=== PATIENT | female | born 1960 | race Caucasian/White ===

== ENCOUNTER → 2016-07-26 | Outpatient (CLI) | payer OTHER ==
[~2016-07-26] MED LIST: ESCI20TA PO; PRAM0.25 PO; SIMV10TA3 PO
== END | disposition home or self-care (01) ==
LOC: RAD 15:44
PROVIDERS: ATTEND Orthopaedic Surgery
DX: S83.232A Complex tear of medial meniscus, current injury, left knee, initial encounter (principal); S83.231A Complex tear of medial meniscus, current injury, right knee, initial encounter; S86.811A Strain of other muscle(s) and tendon(s) at lower leg level, right leg, initial encounter; S86.812A Strain of other muscle(s) and tendon(s) at lower leg level, left leg, initial encounter; M17.0 Bilateral primary osteoarthritis of knee; M71.22 Synovial cyst of popliteal space [Baker], left knee; M71.21 Synovial cyst of popliteal space [Baker], right knee; M25.462 Effusion, left knee; M25.461 Effusion, right knee; X58.XXXA Exposure to other specified factors, initial encounter; Y93.89 Activity, other specified; Y92.89 Other specified places as the place of occurrence of the external cause; Y99.8 Other external cause status

== ENCOUNTER → 2016-08-06 | Outpatient (CLI) | payer OTHER ==
[2016-08-06 10:49] LABS: ASPARTATE AMINO TRANSFERASE 12 U/L (15-37); BLOOD UREA NITROGEN 13 mg/dL (7-18)
== END | disposition home or self-care (01) ==
LOC: LAB 10:15
PROVIDERS: ATTEND Family Medicine
DX: R53.83 Other fatigue (principal)
CPT/HCPCS: 36415; 80053; 82607; 82746; 84439; 84443; 84480; 85025

== ENCOUNTER → 2017-03-13 | Outpatient (CLI) | payer OTHER | END | disposition home or self-care (01) | LOC: RAD 15:50 | PROVIDERS: ATTEND Family Medicine | DX: M25.551 Pain in right hip (principal); M25.552 Pain in left hip; R10.2 Pelvic and perineal pain | CPT/HCPCS: 73523 ==

== ENCOUNTER → 2017-03-15 | Outpatient (CLI) | payer OTHER | END | disposition home or self-care (01) | LOC: CFH 10:22 | PROVIDERS: ATTEND Family Medicine | DX: Z12.31 Encounter for screening mammogram for malignant neoplasm of breast (principal) | CPT/HCPCS: 77063; G0202; 73523 ==

== ENCOUNTER → 2017-07-12 | Outpatient (CLI) | payer OTHER ==
[~2017-07-12] MED LIST changes: +LAMO100T PO; +PANT40TA5 PO
[2017-07-12 11:47] LABS: BASOPHILS # (AUTO) 0.03 x10^3/uL (0-0.1); BASOPHILS % (AUTO) 1 % (0-1); EOSINOPHILS # (AUTO) 0.13 x10^3/uL (0-0.4); EOSINOPHILS % (AUTO) 2 % (1-7); LYMPHOCYTES # (AUTO) 1.76 x10^3/uL (1-3.4); LYMPHOCYTES % (AUTO) 30 % (22-44); MD NO; MEAN CORPUSCULAR HEMOGLOBIN 26.7 pg (27.0-34.8); MEAN CORPUSCULAR HGB CONC 33.2 g/dL (32.4-35.8); MEAN CORPUSCULAR VOLUME 80.4 fL (80-100); MONOCYTES # (AUTO) 0.42 x10^3/uL (0.2-0.8); MONOCYTES % (AUTO) 7 % (2-9); NEUTROPHILS # (AUTO) 3.51 x10^3/uL (1.8-6.8); NEUTROPHILS % (AUTO) 60 % (42-75); PLATELET COUNT 264 x10^3/uL (130-400); RED BLOOD COUNT 4.71 x10^6/uL (3.82-5.3); RED CELL DISTRIBUTION WIDTH 15.9 % (9.6-15.2)
[2017-07-12 11:50] LABS: INTERNATIONAL NORMALIZED RATIO 1.02 (0.93-1.1); PROTHROMBIN TIME 10.5 Seconds (9.6-11.5)
[2017-07-12 11:52] LABS: ANION GAP 7 mmol/L (5-15); CALCIUM 8.5 mg/dL (8.5-10.1); CHLORIDE 108 mmol/L (98-107); CREATININE 0.54 mg/dL (0.55-1.02)
[2017-07-12 13:14] LABS: HEMOGLOBIN A1C 5.2 % (4.2-6.3)
== END | disposition home or self-care (01) ==
LOC: STAR 10:40
PROVIDERS: ATTEND Orthopaedic Surgery
DX: Z01.818 Encounter for other preprocedural examination (principal); M17.12 Unilateral primary osteoarthritis, left knee
CPT/HCPCS: 36415; 80048; 83036; 85025; 85610; 85730; 87081; 87806; 93005; G0475

== ENCOUNTER 2017-07-22 06:03 | Observation (INO) | payer OTHER ==
[2017-07-12 11:05] VITALS: BP 138/84
[~2017-07-22] VITALS: Ht 154.9 cm; Wt 97.8 kg
[2017-07-22] MEDS ORDERED: VANCOMYCIN PER PHARMACY MC ONE (06:30)
[2017-07-22] MEDS ORDERED: GABAPENTIN 300 MG CAPSULE PO ONE (06:30)
[2017-07-22] MEDS ORDERED: ACETAMINOPHEN 500 MG TABLET PO ONE (06:30)
[2017-07-22] MEDS ORDERED: LIDOCAINE-MPF 1%, 2ML ONE (06:38)
[2017-07-22] MEDS ORDERED: TRANEXAMIC ACID 100 MG/ML, 10ML ONE ×4 (06:41)
[2017-07-22] MEDS ORDERED: KETOROLAC 60 MG/2 ML ONE (06:41)
[2017-07-22] MEDS ORDERED: ROPIvacaine/PF 0.2%, 20 ML ONE (06:41)
[2017-07-22] MEDS ORDERED: VANCOMYCIN 1,000 MG ONE (06:41)
[2017-07-22] MEDS ORDERED: SODIUM CHLORIDE 0.9% 100 ML ONE (06:42)
[2017-07-22] MEDS ORDERED: EPINEPHRINE 1 MG/ML, 1ML ONE (06:42)
[2017-07-22] MEDS ORDERED: LACTATED RINGERS 1,000 ML IV SCH (06:55)
[2017-07-22] MEDS ORDERED: FENTANYL PF 100 MCG/2ML ONE ×2 (06:59→10:34)
[2017-07-22] MEDS ORDERED: MIDAZOLAM 1 MG/ML, 2ML ONE (06:59)
[2017-07-22] MEDS ORDERED: VANCOMYCIN 1,300 MG in SODIUM CHLORIDE 0.9% 250 ML IV ONE (07:00)
[2017-07-22] MEDS ORDERED: LIDOCAINE-MPF 1%, 2ML INFIL ONE (07:00)
[2017-07-22] MEDS ORDERED: DIPHENHYDRAMINE 50 MG/ML, 1ML ONE (07:15)
[2017-07-22] MEDS ORDERED: FAMOTIDINE 20 MG TABLET PO ONE (07:30)
[2017-07-22] MEDS ORDERED: OXYcodone IR 5MG TABLET PO ONE (07:30)
[2017-07-22] MEDS ORDERED: ONDANSETRON ODT 8 MG PO ONE (07:30)
[2017-07-22] MEDS ORDERED: ALBUTEROL SULFATE 2.5 MG/3 ML NPPB PRN (08:30)
[2017-07-22] MEDS ORDERED: METOPROLOL 1 MG/ML, 5ML IV PRN (08:30)
[2017-07-22] MEDS ORDERED: ONDANSETRON 2MG/ML, 2ML IVPush PRN (08:30)
[2017-07-22] MEDS ORDERED: HYDROcodone/APAP 7.5-325MG/15ML UDC PO PRN (08:30)
[2017-07-22] MEDS ORDERED: EPHEDRINE 50 MG/ML, 1ML IVPush PRN (08:30)
[2017-07-22] MEDS ORDERED: PROMETHAZINE 25 MG/ML, 1ML IV PRN (08:30)
[2017-07-22] MEDS ORDERED: LABETALOL 5MG/ML, 20ML IV PRN (08:30)
[2017-07-22] MEDS ORDERED: MIDAZOLAM 1 MG/ML, 2ML IV PRN (08:30)
[2017-07-22] MEDS ORDERED: DIAZEPAM 5 MG/ML, 2ML IVPush PRN (08:30)
[2017-07-22] MEDS ORDERED: morphine SULFATE 10 MG/ML, 1ML IV PRN (08:30)
[2017-07-22] MEDS ORDERED: OXYcodone 5 MG/5 ML ORAL.SOL UDC PO PRN (08:30)
[2017-07-22] MEDS ORDERED: hydrALAzine 20 MG/ML, 1ML IV PRN (08:30)
[2017-07-22] MEDS ORDERED: FENTANYL PF 100 MCG/2ML IV PRN (08:30)
[2017-07-22] MEDS ORDERED: PROMETHAZINE 12.5 MG SUPP PR PRN (08:30)
[2017-07-22] MEDS ORDERED: CEFAZOLIN 1,000 MG ONE (08:49)
[2017-07-22] MEDS ORDERED: DEXAMETHASONE 4 MG/ML, 1ML ONE (08:49)
[2017-07-22] MEDS ORDERED: PROPOFOL 10 MG/ML, 20ML ONE (08:49)
[2017-07-22] MEDS ORDERED: MEPERIDINE/PF 25MG/0.5ML ONE (09:47)
[2017-07-22] MEDS: MEPERIDINE/PF 25MG/0.5ML IVPush PRN ×2 (09:48→09:57)
[2017-07-22] MEDS ORDERED: HYDROcodone/APAP 5/325 TABLET PO PRN (10:00)
[2017-07-22] MEDS ORDERED: MAGNESIUM HYDROXIDE 8%, 30ML UDC PO PRN (10:00)
[2017-07-22] MEDS ORDERED: GLUCAGON 1 MG IM PRN (10:00)
[2017-07-22] MEDS ORDERED: ACETAMINOPHEN 650 MG/20.3 ML UDC PO PRN (10:00)
[2017-07-22] MEDS ORDERED: ONDANSETRON 4 MG TABLET PO PRN (10:00)
[2017-07-22] MEDS ORDERED: PROMETHAZINE 25 MG/ML, 1ML IM PRN (10:00)
[2017-07-22] MEDS ORDERED: VANCOMYCIN PMX 1GM/200ML 200 ML IVPB SCH (10:00)
[2017-07-22] MEDS ORDERED: DEXTROSE 4 GM TAB.CHEW PO PRN (10:00)
[2017-07-22] MEDS ORDERED: HYDROmorphone 1 MG/ML, 1ML IV PRN (10:00)
[2017-07-22] MEDS ORDERED: SCOPOLAMINE PATCH, 1.5MG PATCH.TD72 TD PRN (10:00)
[2017-07-22] MEDS ORDERED: DIAZEPAM 5 MG TABLET PO PRN (10:00)
[2017-07-22] MEDS ORDERED: DEXTROSE 50%, 50ML SYRINGE IVPush PRN (10:00)
[2017-07-22] MEDS ORDERED: ZOLPIDEM 5MG TABLET PO PRN (10:00)
[2017-07-22] MEDS ORDERED: OXYcodone 5 MG/5 ML ORAL.SOL UDC ONE (10:34)
[2017-07-22] MEDS ORDERED: TRANEXAMIC ACID 100 MG/ML, 10ML IVPB STA (10:56)
[2017-07-22] MEDS ORDERED: TRANEXAMIC ACID 1,000 MG in SODIUM CHLORIDE 0.9% 100 ML IV ONE (11:30)
[2017-07-22 14:08] VITALS: BP 122/76
[2017-07-22] MEDS ORDERED: VANCOMYCIN PMX 1GM/200ML 200 ML IVPB ONE (18:30)
[2017-07-22] MEDS: OXYcodone IR 5MG TABLET PO PRN ×2 (18:42→19:40)
[2017-07-22 18:56] VITALS: BP 124/54
[2017-07-22] MEDS: SODIUM CHLORIDE FLUSH 10ML SYR IVF SCH (19:40)
[2017-07-22] MEDS: PRAMIPEXOLE 0.25MG TABLET PO SCH (19:40)
[2017-07-22] MEDS ORDERED: SIMVASTATIN 10 MG TABLET PO SCH (21:00)
[2017-07-22 23:19] VITALS: BP 94/50
[2017-07-23] MEDS: OXYcodone IR 5MG TABLET PO PRN ×2 (00:08→04:47)
[2017-07-23 03:11] VITALS: BP 113/61
[2017-07-23 06:50] VITALS: BP 94/59
[2017-07-23] MEDS ORDERED: OXYcodone IR 5MG TABLET PO PRN (07:00)
[2017-07-23] MEDS: SODIUM CHLORIDE FLUSH 10ML SYR IVF SCH (07:29)
[2017-07-23] MEDS ORDERED: PANTOPROZOLE 40MG TABLET PO SCH (07:30)
[2017-07-23] MEDS: PRAMIPEXOLE 0.25MG TABLET PO SCH (08:12)
[2017-07-23] MEDS ORDERED: ONDA4TAB10 PO (08:53)
[2017-07-23] MEDS ORDERED: OXYC5CAP2 PO (08:53)
[2017-07-23] MEDS ORDERED: CELE200C PO (08:53)
[2017-07-23] MEDS ORDERED: DIAZ5TAB PO (08:53)
[2017-07-23] MEDS ORDERED: DOCU-131 PO (08:53)
[2017-07-23] MEDS ORDERED: RIVA10TA PO (08:54)
[2017-07-23] MEDS ORDERED: TRAM50TA2 PO (08:54)
[2017-07-23] MEDS ORDERED: RIVAROXABAN 10 MG TABLET PO SCH (09:00)
[2017-07-23] MEDS ORDERED: LAMOTRIGINE 100 MG TABLET PO SCH (09:00)
[2017-07-23] MEDS ORDERED: CITALOPRAM 20 MG TABLET PO SCH (09:00)
== END 2017-07-23 09:51 | disposition home or self-care (01) ==
LOC: OUT 06:03 → ORIP 09:44 → 4NOR 11:29 → DCLOUNGE 07-23 09:40
PROVIDERS: ADMIT Orthopaedic Surgery; ATTEND Orthopaedic Surgery
DX: M17.12 Unilateral primary osteoarthritis, left knee (principal)
CPT/HCPCS: 27447; 73560; 96365; 97110; 97161; C1713; C1776; G0378; J0171; J0690; J1100; J1200; J1885; J2175; J2250; J2704; J2795; J3010; J3370; J3490; J7050; J7120; Q0162

== ENCOUNTER → 2017-09-26 | Outpatient (CLI) | payer OTHER ==
[~2017-09-26] MED LIST changes: +CELE200C PO; +DIAZ5TAB PO; +DOCU-131 PO; +ONDA4TAB10 PO; +OXYC5CAP2 PO; +RIVA10TA PO; +TRAM50TA2 PO
[2017-09-26 17:13] LABS: MICROSCOPIC NOT IND
[2017-09-26 17:22] LABS: CULTURE INDICATED? ORDERED BY PHYSICIAN
== END | disposition home or self-care (01) ==
LOC: LAB 16:51
PROVIDERS: ATTEND Family Medicine
DX: R39.15 Urgency of urination (principal)
CPT/HCPCS: 81003; 87077; 87086; 87186

== ENCOUNTER 2017-10-27 11:40 | Emergency (ER) | payer OTHER ==
[~2017-10-27] VITALS: Ht 154.9 cm; Wt 82.7 kg
[2017-10-27] MEDS ORDERED: METOCLOPRAMIDE 5 MG/ML, 2ML ONE (12:20)
[2017-10-27] MEDS ORDERED: MORPHINE SULFATE 4 MG/ML, 1ML ONE (12:21)
[2017-10-27] MEDS ORDERED: METOCLOPRAMIDE 5 MG/ML, 2ML IVPush ONE (12:30)
[2017-10-27] MEDS ORDERED: SODIUM CHLORIDE FLUSH 10ML SYR IVF ONE (12:30)
[2017-10-27] MEDS ORDERED: MORPHINE SULFATE 4 MG/ML, 1ML IVPush PRN (12:30)
[2017-10-27] MEDS ORDERED: SODIUM CHLORIDE 0.9% 1,000ML IVBOLUS ONE (12:30)
[2017-10-27 12:33] LABS: BASOPHILS % (AUTO) 0 % (0-1); EOSINOPHILS % (AUTO) 0 % (1-7); LYMPHOCYTES # (AUTO) 0.43 x10^3/uL (1-3.4); LYMPHOCYTES % (AUTO) 7 % (22-44); MD NO; MEAN CORPUSCULAR HGB CONC 32.8 g/dL (32.4-35.8); MEAN PLATELET VOLUME 10.4 fL (7.4-10.4); MONOCYTES # (AUTO) 0.16 x10^3/uL (0.2-0.8); MONOCYTES % (AUTO) 3 % (2-9); NEUTROPHILS # (AUTO) 5.63 x10^3/uL (1.8-6.8); NEUTROPHILS % (AUTO) 90 % (42-75); PLATELET COUNT 276 x10^3/uL (130-400); RED BLOOD COUNT 5.54 x10^6/uL (3.82-5.3); RED CELL DISTRIBUTION WIDTH 17.1 % (9.6-15.2)
[2017-10-27 12:37] LABS: ANION GAP 10 mmol/L (5-15); CALCIUM 8.6 mg/dL (8.5-10.1); CHLORIDE 110 mmol/L (98-107)
[2017-10-27] MEDS ORDERED: LORazepam 2 MG/ML, 1ML IVPush ONE (13:30)
[2017-10-27] MEDS ORDERED: OMNIPAQUE 350 MG/ML, 100ML BOTTLE ONE (13:35)
[2017-10-27] MEDS ORDERED: LORazepam 2 MG/ML, 1ML ONE (14:14)
[2017-10-27 14:23] VITALS: BP 138/72
== END 2017-10-27 14:37 | disposition home or self-care (01) ==
LOC: ED 14:24
DX: K52.9 Noninfective gastroenteritis and colitis, unspecified (principal); E78.00 Pure hypercholesterolemia, unspecified; Z88.0 Allergy status to penicillin; Z88.2 Allergy status to sulfonamides; Z90.710 Acquired absence of both cervix and uterus
CPT/HCPCS: 36415; 74177; 80048; 82040; 83690; 85025; 96361; 96374; 96375; 99285; J2060; J2765; J7030; Q9967

== ENCOUNTER → 2018-05-26 | Outpatient (CLI) | payer OTHER ==
[~2018-05-26] MED LIST changes: -RIVA10TA PO; +RIVA10TA2 PO
[2018-05-26 10:09] LABS: BASOPHILS # (AUTO) 0.02 x10^3/uL (0-0.1); BASOPHILS % (AUTO) 0 % (0-1); EOSINOPHILS # (AUTO) 0.22 x10^3/uL (0-0.4); EOSINOPHILS % (AUTO) 4 % (1-7); LYMPHOCYTES # (AUTO) 1.59 x10^3/uL (1-3.4); LYMPHOCYTES % (AUTO) 28 % (22-44); MD NO; MEAN CORPUSCULAR HGB CONC 32.2 g/dL (32.4-35.8); MEAN CORPUSCULAR VOLUME 74.7 fL (80-100); MEAN PLATELET VOLUME 9.8 fL (7.4-10.4); MONOCYTES # (AUTO) 0.31 x10^3/uL (0.2-0.8); MONOCYTES % (AUTO) 6 % (2-9); NEUTROPHILS # (AUTO) 3.46 x10^3/uL (1.8-6.8); NEUTROPHILS % (AUTO) 62 % (42-75); PLATELET COUNT 248 x10^3/uL (130-400); RED BLOOD COUNT 4.72 x10^6/uL (3.82-5.3); RED CELL DISTRIBUTION WIDTH 17.7 % (9.6-15.2)
[2018-05-26 10:21] LABS: ALANINE AMINOTRANSFERASE 22 U/L (12-78); ALBUMIN 3.5 g/dL (3.4-5.0); ANION GAP 4 mmol/L (5-15); CALCIUM 8.4 mg/dL (8.5-10.1); CHLORIDE 110 mmol/L (98-107); CHOLESTEROL, TOTAL 184 mg/dL (140-239)
[2018-05-26 10:30] LABS: ALKALINE PHOSPHATASE 64 U/L (45-117); BILIRUBIN,TOTAL 0.5 mg/dL (0.2-1.0); CHOL/HDL RATIO 3.3; HDL CHOL % 30 % (28-40); HDL CHOLESTEROL (DIRECT) 56 mg/dL (40-60); LDL CHOLESTEROL,CALCULATED 108 mg/dL (54-169); LDL/HDL RATIO 1.9 (0.5-3.0); T4 (THYROXINE) 8.3 mcg/dL (4.8-13.9); TOTAL PROTEIN 7.2 g/dL (6.4-8.2); TRIGLYCERIDES 98 mg/dL (50-200); VLDL CHOLESTEROL 20 mg/dL (0-25)
== END | disposition home or self-care (01) ==
LOC: LAB 09:45
PROVIDERS: ATTEND Nurse Practitioner Family
DX: F32.9 Major depressive disorder, single episode, unspecified (principal); R13.10 Dysphagia, unspecified; R41.3 Other amnesia; R53.83 Other fatigue; M19.90 Unspecified osteoarthritis, unspecified site
CPT/HCPCS: 36415; 80053; 80061; 82306; 84436; 84443; 84481; 85025

== ENCOUNTER → 2018-07-04 | Outpatient (CLI) | payer OTHER ==
[~2018-07-04] MED LIST changes: +CALC1CAP8 PO; +CHOL200024 PO; +DULO30CA2 PO
[2018-07-04 11:44] LABS: BASOPHILS # (AUTO) 0.03 x10^3/uL (0-0.1); BASOPHILS % (AUTO) 1 % (0-1); EOSINOPHILS % (AUTO) 2 % (1-7); LYMPHOCYTES # (AUTO) 1.93 x10^3/uL (1-3.4); LYMPHOCYTES % (AUTO) 33 % (22-44); MD NO; MEAN CORPUSCULAR HEMOGLOBIN 24.7 pg (27.0-34.8); MEAN CORPUSCULAR HGB CONC 33.3 g/dL (32.4-35.8); MEAN CORPUSCULAR VOLUME 74.2 fL (80-100); MEAN PLATELET VOLUME 9.9 fL (7.4-10.4); MONOCYTES # (AUTO) 0.34 x10^3/uL (0.2-0.8); MONOCYTES % (AUTO) 6 % (2-9); NEUTROPHILS # (AUTO) 3.44 x10^3/uL (1.8-6.8); NEUTROPHILS % (AUTO) 59 % (42-75); PLATELET COUNT 290 x10^3/uL (130-400); RED BLOOD COUNT 4.75 x10^6/uL (3.82-5.3); RED CELL DISTRIBUTION WIDTH 16.5 % (9.6-15.2)
[2018-07-04 11:53] LABS: PROTHROMBIN TIME 10.5 Seconds (9.6-11.5)
[2018-07-04 12:11] LABS: ANION GAP 5 mmol/L (5-15); CALCIUM 8.9 mg/dL (8.5-10.1); CHLORIDE 108 mmol/L (98-107); CREATININE 0.53 mg/dL (0.55-1.02)
[2018-07-04 12:44] LABS: HEMOGLOBIN A1C 5.5 % (4.2-6.3)
== END | disposition home or self-care (01) ==
LOC: STAR 10:38
PROVIDERS: ATTEND Orthopaedic Surgery
DX: Z01.818 Encounter for other preprocedural examination (principal); M17.11 Unilateral primary osteoarthritis, right knee; M25.561 Pain in right knee
CPT/HCPCS: 36415; 80048; 83036; 85025; 85610; 85730; 87081; 87806; 93005; G0475

== ENCOUNTER 2018-07-14 05:46 | Observation (INO) | payer OTHER ==
[~2018-07-14] VITALS: Ht 154.9 cm; Wt 90.4 kg
[2018-07-14 06:03] VITALS: BP 129/88
[2018-07-14] MEDS ORDERED: LACTATED RINGERS 1,000 ML IV SCH (06:05)
[2018-07-14] MEDS ORDERED: KETOROLAC 60 MG/2 ML ONE (06:19)
[2018-07-14] MEDS ORDERED: TRANEXAMIC ACID 100 MG/ML, 10ML ONE ×3 (06:19→06:20)
[2018-07-14] MEDS ORDERED: EPINEPHRINE 1 MG/ML, 1ML ONE (06:20)
[2018-07-14] MEDS ORDERED: ROPIvacaine/PF 0.2%, 20 ML ONE (06:20)
[2018-07-14] MEDS ORDERED: SODIUM CHLORIDE 0.9% 50 ML ONE (06:21)
[2018-07-14] MEDS ORDERED: FENTANYL PF 250 MCG/5ML ONE (06:22)
[2018-07-14] MEDS ORDERED: MIDAZOLAM 1 MG/ML, 2ML ONE (06:22)
[2018-07-14] MEDS ORDERED: ACETAMINOPHEN 500 MG TABLET PO ONE (06:30)
[2018-07-14] MEDS ORDERED: GABAPENTIN 300 MG CAPSULE PO ONE (06:30)
[2018-07-14] MEDS ORDERED: PSYLLIUM PACKET PO PRN (07:00)
[2018-07-14] MEDS ORDERED: ALUMINUM/MAG/SIMETHICONE 30 ML UDC PO PRN (07:00)
[2018-07-14] MEDS ORDERED: SENNA/DOCUSATE TABLET PO PRN (07:00)
[2018-07-14] MEDS ORDERED: ACETAMINOPHEN 650 MG/20.3 ML UDC PO PRN (07:00)
[2018-07-14] MEDS ORDERED: ACETAMINOPHEN 325 MG TABLET PO PRN (07:00)
[2018-07-14] MEDS ORDERED: ONDANSETRON 2MG/ML, 2ML IVPush PRN (07:00)
[2018-07-14] MEDS ORDERED: ONDANSETRON 4 MG TABLET PO PRN (07:00)
[2018-07-14] MEDS ORDERED: BISACODYL 10 MG SUPP PR PRN (07:00)
[2018-07-14] MEDS ORDERED: PROMETHAZINE 25 MG/ML, 1ML IM PRN (07:00)
[2018-07-14] MEDS ORDERED: MAGNESIUM HYDROXIDE 8%, 30ML UDC PO PRN (07:00)
[2018-07-14] MEDS ORDERED: POLYETHYLENE GLYCOL 17 GM PACKET PO PRN (07:00)
[2018-07-14] MEDS ORDERED: DIPHENHYDRAMINE 50 MG CAPSULE PO PRN (07:00)
[2018-07-14] MEDS ORDERED: HYDROmorphone 1 MG/ML, 1ML INJ IVPush PRN (07:00)
[2018-07-14] MEDS ORDERED: PROPOFOL 10 MG/ML, 20ML ONE (07:02)
[2018-07-14] MEDS ORDERED: DEXAMETHASONE 4 MG/ML, 1ML ONE (07:02)
[2018-07-14] MEDS ORDERED: GLYCOPYRROLATE 0.2MG/1ML, 5ML ONE (07:02)
[2018-07-14] MEDS ORDERED: ROCURONIUM 10MG/ML,5ML ONE (07:02)
[2018-07-14] MEDS ORDERED: ONDANSETRON 2MG/ML, 2ML ONE (07:02)
[2018-07-14] MEDS ORDERED: NEOSTIGMINE 1 MG/ML, 10ML ONE (07:02)
[2018-07-14] MEDS ORDERED: CLINDAMYCIN 150 MG/ML, 6ML ONE (07:16)
[2018-07-14] MEDS ORDERED: LABETALOL 5MG/ML, 20ML IV PRN (07:30)
[2018-07-14] MEDS ORDERED: PROMETHAZINE 25 MG/ML, 1ML IV PRN (07:30)
[2018-07-14] MEDS ORDERED: OXYcodone 5 MG/5 ML ORAL.SOL UDC PO PRN (07:30)
[2018-07-14] MEDS ORDERED: hydrALAzine 20 MG/ML, 1ML IV PRN (07:30)
[2018-07-14] MEDS ORDERED: HALOPERIDOL 5 MG/ML IV PRN (07:30)
[2018-07-14] MEDS ORDERED: ALBUTEROL SULFATE 2.5 MG/3 ML NPPB PRN (07:30)
[2018-07-14] MEDS ORDERED: TRANEXAMIC ACID 1,000 MG in SODIUM CHLORIDE 0.9% 100 ML IVPB ONE (08:30)
[2018-07-14] MEDS ORDERED: HYDROmorphone 2 MG/ML, 1ML ONE (08:44)
[2018-07-14] MEDS ORDERED: FENTANYL PF 100 MCG/2ML ONE (08:44)
[2018-07-14] MEDS ORDERED: OXYcodone 5 MG/5 ML ORAL.SOL UDC ONE (08:45)
[2018-07-14] MEDS: FENTANYL PF 100 MCG/2ML IV PRN ×2 (08:48→09:01)
[2018-07-14] MEDS: HYDROmorphone 2 MG/ML, 1ML IVPush PRN ×6 (08:55→23:06)
[2018-07-14] MEDS: D5%-0.45NACL+KCL 20MEQ 1,000 ML IV SCH ×2 (10:33→20:37)
[2018-07-14] MEDS: DOCUSATE 100 MG CAPSULE PO SCH ×2 (10:33→20:28)
[2018-07-14 12:45] VITALS: BP 127/65
[2018-07-14] MEDS: OXYcodone IR 5MG TABLET PO PRN ×3 (13:40→21:33)
[2018-07-14] MEDS: CEFAZOLIN PMX 1GM/50ML 50 ML IVPB SCH ×2 (15:06→22:58)
[2018-07-14] MEDS: TAMSULOSIN 0.4 MG CAP.ER.24H PO SCH (17:03)
[2018-07-14 20:05] VITALS: BP 116/66
[2018-07-14] MEDS: PRAMIPEXOLE 0.25MG TABLET PO SCH (20:27)
[2018-07-14] MEDS ORDERED: SIMVASTATIN 10 MG TABLET PO SCH (21:00)
[2018-07-14 23:31] VITALS: BP_SYST 105; BP_SYST 141; BP_DIAS 47; BP_DIAS 70
[2018-07-15] MEDS: OXYcodone IR 5MG TABLET PO PRN ×2 (01:34→06:04)
[2018-07-15] MEDS: D5%-0.45NACL+KCL 20MEQ 1,000 ML IV SCH (03:52)
[2018-07-15 04:18] VITALS: BP 141/77
[2018-07-15] MEDS: HYDROmorphone 2 MG/ML, 1ML IVPush PRN (04:36)
[2018-07-15] MEDS ORDERED: DEXAMETHASONE 4 MG/ML, 1ML IVPush ONE (06:00)
[2018-07-15] MEDS ORDERED: PANTOPROZOLE 40MG TABLET PO SCH (06:00)
[2018-07-15 06:25] VITALS: BP 135/75
[2018-07-15] MEDS ORDERED: RIVAROXABAN 10 MG TABLET PO SCH (08:00)
[2018-07-15] MEDS ORDERED: DULOXETINE 30 MG CAPSULE.DR PO SCH (09:00)
[2018-07-15] MEDS ORDERED: PRAMIPEXOLE 0.5MG TABLET ONE (09:13)
[2018-07-15] MEDS: TAMSULOSIN 0.4 MG CAP.ER.24H PO SCH (09:17)
[2018-07-15] MEDS: DOCUSATE 100 MG CAPSULE PO SCH (09:17)
[2018-07-15] MEDS: PRAMIPEXOLE 0.25MG TABLET PO SCH (09:21)
== END 2018-07-15 11:46 | disposition home or self-care (01) ==
LOC: OUT 05:46 → ORIP 06:41 → 4NOR 09:46 → DCLOUNGE 07-15 11:25
PROVIDERS: ADMIT Orthopaedic Surgery; ATTEND Orthopaedic Surgery
DX: M17.11 Unilateral primary osteoarthritis, right knee (principal)
CPT/HCPCS: 27447; 36415; 73560; 85014; 85018; 96365; 96366; 96375; 96376; 97110; 97161; C1713; C1776; G0378; J0171; J0690; J1100; J1170; J1885; J2250; J2405; J2704; J2710; J2795; J3010; J3480; J7120; S0077

== ENCOUNTER → 2018-08-28 | Outpatient (CLI) | payer OTHER ==
[~2018-08-28] MED LIST changes: +GADOBUTROL 10 MMOL/10 ML PFS ONE
== END | disposition home or self-care (01) ==
LOC: CFH 13:20
PROVIDERS: ATTEND Nurse Practitioner Family
DX: M19.042 Primary osteoarthritis, left hand (principal); M65.842 Other synovitis and tenosynovitis, left hand
CPT/HCPCS: 73220; A9585

== ENCOUNTER → 2019-01-29 | Outpatient (CLI) | payer OTHER ==
[~2019-01-29] MED LIST changes: +DULO20CA45 PO; -GADOBUTROL 10 MMOL/10 ML PFS ONE
[2019-01-29 11:27] LABS: BASOPHILS # (AUTO) 0.04 x10^3/uL (0-0.1); BASOPHILS % (AUTO) 1 % (0-1); EOSINOPHILS # (AUTO) 0.12 x10^3/uL (0-0.4); EOSINOPHILS % (AUTO) 2 % (1-7); LYMPHOCYTES # (AUTO) 1.87 x10^3/uL (1-3.4); LYMPHOCYTES % (AUTO) 30 % (22-44); MD NO; MEAN CORPUSCULAR HEMOGLOBIN 25.2 pg (27.0-34.8); MEAN CORPUSCULAR HGB CONC 32.1 g/dL (32.4-35.8); MEAN CORPUSCULAR VOLUME 78.6 fL (80-100); MEAN PLATELET VOLUME 10.3 fL (7.4-10.4); MONOCYTES # (AUTO) 0.39 x10^3/uL (0.2-0.8); MONOCYTES % (AUTO) 6 % (2-9); NEUTROPHILS # (AUTO) 3.76 x10^3/uL (1.8-6.8); NEUTROPHILS % (AUTO) 61 % (42-75); PLATELET COUNT 268 x10^3/uL (130-400); RED BLOOD COUNT 4.94 x10^6/uL (3.82-5.3)
[2019-01-29 11:36] LABS: HCT (SEDRATE) 38.8 % (34.6-47.8)
[2019-01-29 14:07] LABS: ALBUMIN 3.7 g/dL (3.4-5.0); ANION GAP 5 mmol/L (5-15); CALCIUM 8.4 mg/dL (8.5-10.1); CHLORIDE 109 mmol/L (98-107)
[2019-01-29 14:33] LABS: ALANINE AMINOTRANSFERASE 22 U/L (12-78); ALKALINE PHOSPHATASE 69 U/L (45-117); BILIRUBIN,TOTAL 0.5 mg/dL (0.2-1.0); CHOL/HDL RATIO 3.1; CHOLESTEROL, TOTAL 191 mg/dL (140-239); CREATININE 0.59 mg/dL (0.55-1.02); HDL CHOL % 32 % (28-40); HDL CHOLESTEROL (DIRECT) 61 mg/dL (40-60); LDL CHOLESTEROL,CALCULATED 115 mg/dL (54-169); LDL/HDL RATIO 1.9 (0.5-3.0); TOTAL PROTEIN 7.5 g/dL (6.4-8.2); TRIGLYCERIDES 77 mg/dL (50-200); VLDL CHOLESTEROL 15 mg/dL (0-25)
[2019-01-29 14:41] LABS: FOLATE LEVEL > 20.0 ng/mL (3.1-17.5)
== END | disposition home or self-care (01) ==
LOC: LAB 10:10
PROVIDERS: ATTEND Nurse Practitioner
DX: M25.532 Pain in left wrist (principal); M79.642 Pain in left hand; R53.83 Other fatigue; R76.9 Abnormal immunological finding in serum, unspecified; Z00.00 Encounter for general adult medical examination without abnormal findings; Z79.899 Other long term (current) drug therapy
CPT/HCPCS: 36415; 80053; 80061; 82043; 82607; 82746; 83516; 84443; 85025; 85651; 86038; 86200; 86225; 86235; 86431

== ENCOUNTER → 2019-03-20 | Outpatient (CLI) | payer OTHER | END | disposition home or self-care (01) | LOC: CVU 08:42 | PROVIDERS: ATTEND Internal Medicine Cardiovascular Disease | DX: I87.2 Venous insufficiency (chronic) (peripheral) (principal); I08.8 Other rheumatic multiple valve diseases | CPT/HCPCS: 93306; 93970 ==

== ENCOUNTER → 2019-04-20 | Outpatient (CLI) | payer OTHER ==
[~2019-04-20] MED LIST changes: -LAMO100T PO; +LAMO100T8 PO; +SIMV10TA18 PO; -SIMV10TA3 PO
== END | disposition home or self-care (01) ==
LOC: LAB 08:42
PROVIDERS: ATTEND Nurse Practitioner
DX: E83.51 Hypocalcemia (principal)
CPT/HCPCS: 36415; 82306; 82330; 83970

== ENCOUNTER 2019-05-21 12:01 | Day surgery (SDC) | payer OTHER ==
[~2019-05-21] VITALS: Ht 154.9 cm; Wt 85.0 kg
[2019-05-21] MEDS ORDERED: LIDOCAINE 2%, 20ML ONE (14:30)
== END 2019-05-21 15:38 | disposition home or self-care (01) ==
LOC: CACL 12:01
PROVIDERS: ATTEND Internal Medicine Cardiovascular Disease
DX: I83.811 Varicose veins of right lower extremity with pain (principal); I83.11 Varicose veins of right lower extremity with inflammation; Z88.0 Allergy status to penicillin; Z88.2 Allergy status to sulfonamides
CPT/HCPCS: 36482; C1769; C1894

== ENCOUNTER → 2019-05-25 | Outpatient (CLI) | payer OTHER | END | disposition home or self-care (01) | LOC: CVU 10:21 | PROVIDERS: ATTEND Internal Medicine Cardiovascular Disease | DX: I87.2 Venous insufficiency (chronic) (peripheral) (principal) | CPT/HCPCS: 93971 ==

== ENCOUNTER → 2019-05-28 | Emergency (ER) | payer OTHER ==
[~2019-05-28] VITALS: Ht 154.9 cm; Wt 89.8 kg
[~2019-05-28] MED LIST changes: +CLINDAMYCIN 300 MG CAPSULE ONE; +CLINDAMYCIN 300 MG CAPSULE PO ONE
--- NOTE | 2019-05-28 16:40 | NUR ---
patient arrives to er with complaints of right upper leg pain from knee proximal up inside of right thigh. it is red with a white line up thigh. she had dr zambrano do a vein gluing on her left lower leg last may 20 secondary to venuous reflux.
[2019-05-28 17:39] LABS: BASOPHILS # (AUTO) 0.03 x10^3/uL (0-0.1); BASOPHILS % (AUTO) 0 % (0-1); EOSINOPHILS # (AUTO) 0.12 x10^3/uL (0-0.4); EOSINOPHILS % (AUTO) 1 % (1-7); LYMPHOCYTES % (AUTO) 24 % (22-44); MD NO; MEAN CORPUSCULAR HEMOGLOBIN 24.8 pg (27.0-34.8); MEAN CORPUSCULAR HGB CONC 32.9 g/dL (32.4-35.8); MEAN CORPUSCULAR VOLUME 75.4 fL (80-100); MEAN PLATELET VOLUME 10.1 fL (7.4-10.4); MONOCYTES # (AUTO) 0.52 x10^3/uL (0.2-0.8); MONOCYTES % (AUTO) 6 % (2-9); NEUTROPHILS # (AUTO) 5.51 x10^3/uL (1.8-6.8); NEUTROPHILS % (AUTO) 67 % (42-75); PLATELET COUNT 249 x10^3/uL (130-400); RED BLOOD COUNT 4.72 x10^6/uL (3.82-5.3)
[2019-05-28 17:42] LABS: ANION GAP 6 mmol/L (5-15); CALCIUM 8.5 mg/dL (8.5-10.1); CHLORIDE 108 mmol/L (98-107); CREATININE 0.49 mg/dL (0.55-1.02)
[2019-05-28 19:26] VITALS: BP 132/86
--- NOTE | 2019-05-28 19:26 | NUR ---
BREAK RN: DISCHARGED PATIENT FOR PRIMARY RN
== END ==
LOC: ED 19:15
DX: L03.115 Cellulitis of right lower limb (principal); R21 Rash and other nonspecific skin eruption; I10 Essential (primary) hypertension; E78.00 Pure hypercholesterolemia, unspecified
CPT/HCPCS: 36415; 80048; 85025; 99283

== ENCOUNTER → 2019-06-15 | Outpatient (CLI) | payer OTHER ==
[~2019-06-15] MED LIST changes: -CLINDAMYCIN 300 MG CAPSULE ONE; -CLINDAMYCIN 300 MG CAPSULE PO ONE
== END | disposition home or self-care (01) ==
LOC: RAD 14:10
PROVIDERS: ATTEND Nurse Practitioner
DX: S93.402A Sprain of unspecified ligament of left ankle, initial encounter (principal); X58.XXXA Exposure to other specified factors, initial encounter; Y93.89 Activity, other specified; Y92.89 Other specified places as the place of occurrence of the external cause; Y99.8 Other external cause status

== ENCOUNTER 2019-10-29 20:08 | Emergency (ER) | payer OTHER ==
[~2019-10-29] VITALS: Ht 154.9 cm; Wt 92.7 kg
[2019-10-29 20:10] VITALS: BP 164/102
--- NOTE | 2019-10-29 20:37 | NUR ---
PT AMB TO ROOM AT THIS TIME
== END 2019-10-29 21:59 | disposition home or self-care (01) ==
LOC: ED 21:02
DX: S93.492A Sprain of other ligament of left ankle, initial encounter (principal); I10 Essential (primary) hypertension; E78.00 Pure hypercholesterolemia, unspecified; X58.XXXA Exposure to other specified factors, initial encounter; Y93.89 Activity, other specified; Y92.89 Other specified places as the place of occurrence of the external cause; Y99.8 Other external cause status
CPT/HCPCS: 99284

== ENCOUNTER → 2019-11-17 | Outpatient (CLI) | payer OTHER ==
[~2019-11-17] MED LIST changes: -PANT40TA5 PO; +PANT40TA6 PO
[2019-11-17 10:04] LABS: BASOPHILS # (AUTO) 0.03 x10^3/uL (0-0.1); BASOPHILS % (AUTO) 1 % (0-1); EOSINOPHILS # (AUTO) 0.15 x10^3/uL (0-0.4); EOSINOPHILS % (AUTO) 3 % (1-7); LYMPHOCYTES % (AUTO) 29 % (22-44); MD NO; MEAN CORPUSCULAR HEMOGLOBIN 24.3 pg (27.0-34.8); MEAN CORPUSCULAR HGB CONC 32.5 g/dL (32.4-35.8); MEAN CORPUSCULAR VOLUME 74.8 fL (80-100); MEAN PLATELET VOLUME 10.5 fL (7.4-10.4); MONOCYTES # (AUTO) 0.39 x10^3/uL (0.2-0.8); MONOCYTES % (AUTO) 8 % (2-9); NEUTROPHILS # (AUTO) 3.08 x10^3/uL (1.8-6.8); NEUTROPHILS % (AUTO) 60 % (42-75); PLATELET COUNT 248 x10^3/uL (130-400); RED BLOOD COUNT 4.97 x10^6/uL (3.82-5.3); RED CELL DISTRIBUTION WIDTH 18.6 % (9.6-15.2)
[2019-11-17 10:13] LABS: ALANINE AMINOTRANSFERASE 20 U/L (12-78); ALBUMIN 3.5 g/dL (3.4-5.0); ANION GAP 5 mmol/L (5-15); CALCIUM 8.7 mg/dL (8.5-10.1); CHLORIDE 108 mmol/L (98-107); CHOLESTEROL, TOTAL 196 mg/dL (140-239); CREATININE 0.47 mg/dL (0.55-1.02)
[2019-11-17 10:24] LABS: ALKALINE PHOSPHATASE 65 U/L (45-117); BILIRUBIN,TOTAL 0.7 mg/dL (0.2-1.0); CHOL/HDL RATIO 4.2; HDL CHOL % 24 % (28-40); HDL CHOLESTEROL (DIRECT) 47 mg/dL (40-60); LDL CHOLESTEROL,CALCULATED 109 mg/dL (54-169); LDL/HDL RATIO 2.3 (0.5-3.0); TOTAL PROTEIN 7.1 g/dL (6.4-8.2); TRIGLYCERIDES 200 mg/dL (50-200); VLDL CHOLESTEROL 40 mg/dL (0-25)
== END | disposition home or self-care (01) ==
LOC: LAB 09:33
PROVIDERS: ATTEND Nurse Practitioner
DX: E83.51 Hypocalcemia (principal); I87.2 Venous insufficiency (chronic) (peripheral)
CPT/HCPCS: 36415; 80053; 80061; 82306; 82330; 84443; 85025

== ENCOUNTER → 2019-12-10 | Outpatient (CLI) | payer OTHER | END | disposition home or self-care (01) | LOC: CFH 14:35 | PROVIDERS: ATTEND Nurse Practitioner | DX: Z12.31 Encounter for screening mammogram for malignant neoplasm of breast (principal) | CPT/HCPCS: 77063; 77067 ==

== ENCOUNTER → 2020-06-29 | Outpatient (CLI) | payer OTHER ==
[~2020-06-29] MED LIST changes: -ESCI20TA PO; +ESCI20TA8 PO
[2020-06-29 10:07] LABS: BASOPHILS % (AUTO) 1 % (0-1); EOSINOPHILS % (AUTO) 2 % (1-7); LYMPHOCYTES % (AUTO) 31 % (22-44); MEAN CORPUSCULAR HEMOGLOBIN 25.4 pg (27.0-34.8); MEAN CORPUSCULAR HGB CONC 32.4 g/dL (32.4-35.8); MEAN PLATELET VOLUME 9.2 fL (7.4-10.4); MONOCYTES % (AUTO) 7 % (2-9); NEUTROPHILS % (AUTO) 60 % (42-75); PLATELET COUNT 258 x10^3/uL (130-400)
[2020-06-29 10:09] LABS: MD NO
[2020-06-29 10:20] LABS: ALANINE AMINOTRANSFERASE 21 U/L (12-78); ALBUMIN 3.7 g/dL (3.4-5.0); CALCIUM 9.1 mg/dL (8.5-10.1); CHLORIDE 107 mmol/L (98-107); CREATININE 0.51 mg/dL (0.55-1.02)
[2020-06-29 10:30] LABS: ANION GAP 3 mmol/L (5-15)
[2020-06-29 10:46] LABS: ALKALINE PHOSPHATASE 69 U/L (45-117); BILIRUBIN,TOTAL 0.5 mg/dL (0.2-1.0); CHOL/HDL RATIO 4.4; CHOLESTEROL, TOTAL 219 mg/dL (140-239); FOLATE LEVEL 14.5 ng/mL (3.1-17.5); FREE T4 (FREE THYROXINE) 0.86 ng/dL (0.76-1.46); HDL CHOL % 23 % (28-40); HDL CHOLESTEROL (DIRECT) 50 mg/dL (40-60); LDL CHOLESTEROL,CALCULATED 134 mg/dL (54-169); LDL/HDL RATIO 2.7 (0.5-3.0); TOTAL PROTEIN 7.7 g/dL (6.4-8.2); TRIGLYCERIDES 175 mg/dL (50-200); VLDL CHOLESTEROL 35 mg/dL (0-25)
== END | disposition home or self-care (01) ==
LOC: LAB 09:43
PROVIDERS: ATTEND Nurse Practitioner Family
DX: Z13.228 Encounter for screening for other metabolic disorders (principal); E78.49 Other hyperlipidemia; G25.81 Restless legs syndrome; G62.89 Other specified polyneuropathies; K21.9 Gastro-esophageal reflux disease without esophagitis; J30.2 Other seasonal allergic rhinitis; L65.9 Nonscarring hair loss, unspecified
CPT/HCPCS: 36415; 80053; 80061; 82306; 82607; 82746; 83036; 84439; 84443; 85025

== ENCOUNTER 2020-11-29 07:56 | Outpatient (CLI) | payer OTHER | END 2020-11-29 23:59 | disposition home or self-care (01) | LOC: LAB 07:56 | PROVIDERS: ATTEND Nurse Practitioner Family | DX: K21.9 Gastro-esophageal reflux disease without esophagitis (principal); R79.9 Abnormal finding of blood chemistry, unspecified; E78.5 Hyperlipidemia, unspecified; E55.9 Vitamin D deficiency, unspecified | CPT/HCPCS: 36415; 82728; 83540; 83550 ==

== ENCOUNTER 2020-12-06 09:48 | Outpatient (CLI) | payer OTHER | END 2020-12-06 23:59 | disposition home or self-care (01) | LOC: RAD 09:48 | PROVIDERS: ATTEND Orthopaedic Surgery | DX: S86.011A Strain of right Achilles tendon, initial encounter (principal); X58.XXXA Exposure to other specified factors, initial encounter; Y93.89 Activity, other specified; Y92.89 Other specified places as the place of occurrence of the external cause; Y99.8 Other external cause status ==